=== PATIENT | male | born 1955 | race Caucasian/White ===

== ENCOUNTER 2016-06-22 10:14 | Inpatient (IN) | payer MEDICARE, BC ==
--- NOTE | 2016-06-22 10:25 | ER Document Report ---
ED Medical Screen (RME) - General Stated Complaint: LEFT SIDE FACIAL NUMBNESS Mode of Arrival: Wheelchair Information source: Patient Notes: Patient presents with left upper extremity and left lower extremity numbness that started about one hour prior to arrival. Patient does have a previous history of stroke 2 and is concerned about the same today. Patient without any headache symptoms. hx: CVA, HIV I have greeted and performed a rapid initial assessment of this patient. A comprehensive ED assessment and evaluation of the patient, analysis of test results and completion of the medical decision making process will be conducted by additional ED providers. 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 Denies: Hx Seizures GI Medical History: Denies: Hx Hepatitis, Hx Hiatal Hernia, Hx Ulcer Infectious Medical History: Denies: Hx Hepatitis Past Surgical History: Denies: Hx Open Heart Surgery, Hx Pacemaker Physical Exam - Vital signs Vitals: Temp Pulse Resp BP Pulse Ox 97.9 F 73 16 146/96 H 96 06/22/16 10:19 06/22/16 10:19 06/22/16 10:19 06/22/16 10:19 06/22/16 10:19 - Neurological Cy Coma Scale Eye Opening: Spontaneous Cy Coma Scale Verbal: Oriented Cy Coma Scale Motor: Obeys Commands Cy Coma Scale Total: 15 Notes: Weakened adobe flex developer to left upper extremity Course - Vital Signs Vital signs: Temp Pulse Resp BP Pulse Ox 97.9 F 73 16 146/96 H 96 06/22/16 10:19 06/22/16 10:19 06/22/16 10:19 06/22/16 10:19 06/22/16 10:19
[2016-06-22 11:04] LABS: PROTHROMBIN TIME 12.1 SEC (11.4-15.4)
[2016-06-22 11:05] LABS: PARTIAL THROMBOPLASTIN TIME 27.6 SEC (23.5-35.8)
[2016-06-22 11:06] LABS: ABSOLUTE EOSINOPHILS # (AUTO) 0.1 10^3/uL (0.0-0.6); ABSOLUTE LYMPHOCYTES (AUTO) 3.1 10^3/uL (0.5-4.7); ABSOLUTE MONOCYTES (AUTO) 1.2 10^3/uL (0.1-1.4); ABSOLUTE NEUT (AUTO) 6.3 10^3/uL (1.7-8.2); BASOPHILS % (AUTO) 0.5 % (0-2); HEMATOCRIT 50.1 % (37.9-51.0); HEMOGLOBIN 16.4 g/dL (13.5-17.0); HGB HCT DIFFERENCE -0.9; LYMPHOCYTES % (AUTO) 28.9 % (13-45); MEAN CORPUSCULAR HEMOGLOBIN 31.4 pg (27.0-33.4); MEAN CORPUSCULAR HGB CONC 32.8 g/dL (32.0-36.0); MEAN CORPUSCULAR VOLUME 96 fl (80-97); MONOCYTES % (AUTO) 11.5 % (3-13); RED BLOOD COUNT 5.23 10^6/uL (4.35-5.55); RED CELL DISTRIBUTION WIDTH 13.8 % (11.5-14.0); SEGMENTED NEUTROPHILS % (AUTO) 58.1 % (42-78); WHITE BLOOD COUNT 10.8 10^3/uL (4.0-10.5)
--- NOTE | 2016-06-22 11:14 | ER Document Report ---
ED Neuro Symptoms/Deficit - General Chief Complaint: Weakness Stated Complaint: LEFT SIDE FACIAL NUMBNESS Mode of Arrival: Wheelchair Notes: The patient is a 61-year-old male, past medical history HIV (high CD4, undetectable viral load), 2 prior CVAs 30 years ago, cor pulmonale, presents with sudden onset of mild left arm and leg weakness and numbness started at 9: 15. He has never had this before. He denies headache, blurry vision, nausea, vomiting, chest pain, shortness of breath, back pain, neck pain, neck stiffness , facial/right-sided weakness or numbness. - Related Data Allergies/Adverse Reactions: cephalexin [Cephalexin] Allergy (Unknown, Verified 11/05/12 11:05) fexofenadine HCl [From Lizzie] Allergy (Unknown, Verified 11/05/12 11:05) ketoconazole [From Nizoral] Allergy (Unknown, Verified 11/05/12 11:05) nevirapine [From Viramune] Allergy (Unknown, Verified 11/05/12 11:05) niacin [Niacin] Allergy (Unknown, Verified 11/05/12 11:05) stavudine [From Zerit] Allergy (Unknown, Verified 11/05/12 11:05) aztreonam Allergy (Verified 06/22/16 11:08) VIDEZ Allergy (Unknown, Uncoded 11/05/12 11:05) Past Medical History - General Information source: Patient - Social History Smoking Status: Former Smoker Family History: Reviewed & Not Pertinent - Past Medical History Cardiac Medical History: Denies: Hx Heart Attack - 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 Denies: Hx Seizures GI Medical History: Denies: Hx Hepatitis, Hx Hiatal Hernia, Hx Ulcer Infectious Medical History: Denies: Hx Hepatitis Past Surgical History: Denies: Hx Open Heart Surgery, Hx Pacemaker Review of Systems - Review of Systems Notes: REVIEW OF SYSTEMS: CONSTITUTIONAL: -fevers, -chills EENT: -eye pain, -difficulty swallowing, -nasal congestion CARDIOVASCULAR:-chest pain, -syncope. RESPIRATORY: -cough, -SOB GASTROINTESTINAL: -abdominal pain, - nausea, -vomiting, -diarrhea GENITOURINARY: -dysuria, -hematuria MUSCULOSKELETAL: -back pain, -neck pain SKIN: -rash or skin lesions. HEMATOLOGIC: -easy bruising or bleeding. LYMPHATIC: -swollen, enlarged glands. NEUROLOGICAL: -altered mental status or loss of consciousness, -headache, +left arm/leg weakness and numbness PSYCHIATRIC: -anxiety, -depression. ALL OTHER SYSTEMS REVIEWED AND NEGATIVE. Physical Exam - Vital signs Vitals: Temp Pulse Resp BP Pulse Ox 97.9 F 73 16 146/96 H 96 06/22/16 10:19 06/22/16 10:19 06/22/16 10:19 06/22/16 10:19 06/22/16 10:19 - Notes Notes: PHYSICAL EXAMINATION: GENERAL: Well-appearing, well-nourished and in no acute distress. HEAD: Atraumatic, normocephalic. EYES: Pupils equal round and reactive to light, extraocular movements intact, sclera anicteric, conjunctiva are normal. ENT: nares patent, oropharynx clear without exudates. Moist mucous membranes. NECK: Normal range of motion, supple without lymphadenopathy LUNGS: Breath sounds clear to auscultation bilaterally and equal. No wheezes rales or rhonchi. HEART: Regular rate and rhythm without murmurs ABDOMEN: Soft, nontender, normoactive bowel sounds. No guarding, no rebound. No masses appreciated. EXTREMITIES: Normal range of motion, no pitting or edema. No cyanosis. NEUROLOGICAL: 4/5 strength in left arm and left leg, partial sensory loss in left arm and left leg, no other sensory loss or weakness, Cranial nerves grossly intact. Normal speech, normal gait. PSYCH: Normal mood, normal affect. SKIN: Warm, Dry, normal turgor, no rashes or lesions noted. Course - Re-evaluation Re-evalutation: Stroke alert called immediately on arrival to the emergency room. CT does not show any acute bleeds or acute strokes. Patient's onset of symptoms at 09:15. Normal blood glucose. NIHSS 3. ABCD2 score 6, which places him in the high risk category for future CVAs. He is not on any blood thinners. ASA provided. Spoke to patient about risks and benefits of TPA, including 2 out of 18 patients experience relief of her symptoms and 1 out of 18 patients will have a life- threatening head bleed. Due to his low NIH stroke scale and risks outweighing the benefits, the patient made a shared decision to not accept TPA at this time. EKG shows diffuse T-wave inversions, but no old EKG to compare it to. Troponin negative and never had chest pain. May be related to his cor pulmonale and PFO. Will admit patient as inpatient for further evaluation and treatment of his TIA/CVA. His PMD is Dr. Dyer. Will admit to the hospitalist. 06/22/16 12:02 Labs unremarkable. Spoke to Dr. Camacho and will admit patient to IM as Inpatient. - Vital Signs Vital signs: Temp Pulse Resp BP Pulse Ox 97.9 F 73 16 146/96 H 96 06/22/16 10:19 06/22/16 10:19 06/22/16 10:19 06/22/16 10:19 06/22/16 10:19 - Laboratory Result Diagrams: 06/22/16 10:50 06/22/16 10:50 - Diagnostic Test Radiology reviewed: Image reviewed, Reports reviewed Radiology results interpreted by me: CT Head: Chronic changes, no acute bleeds CXR: NAD - EKG Interpretation by Me EKG shows normal: Sinus rhythm, [place], Intervals, QRS Complexes When compared to previous EKG there are: Previous EKG unavailable Additional EKG results interpreted by me: Inverted T-waves in diffuse leads (no old EKG) Critical Care Note - Critical Care Note Total time excluding time spent on procedures (mins): 35 ED Alteplase Inc/Exc Criteria - Date/Time patient last known well: Date/Time: 06/22/16 09:15 am - Date/Time patient arrived in ED: _: 06/22/16 10:00 am - Inclusion Criteria: 1: Patient presented to ED within 3 hours of acute ischemic stroke symptom onset ? -: Yes 2: Did baseline CT exclude intracranial hemorrhage and/or other risk factors? -: Yes 3: Is the age of the patient 18 years of age or greater? -: Yes : If any of the above questions are answered "NO" then stop, patient is not a candidate for Alteplase, : If all of the above questions are answered "YES" then continue with Exclusion Criteria. - Exclusion Criteria: 1: Is there evidence of intracranial hemorrhage on baseline CT? -: No 2: Is there suspicion of subarachnoid hemorrhage (even if CT negative)? -: No 3: Is there a history of serious head trauma, recent previous stroke or PA within 3 months? -: No 4: Does the patient have a clinical presentation consistent with PA or post-PA pericarditis? -: No 5: Is there history of intracranial hemorrhage? -: No 6: On repeated measurement is Systolic BP greater than 185mmHg or Diastolic BP greater that 110 mmHg and is aggressive treatment needed to reduce blood pressure to these limits (e.g. constant infusion of an anti-hypertensive)? -: No 7: Did the patient awake with stroke symptoms? -: No 8: Has the patient had a lumbar puncture or an arterial puncture at a non- compressile site within 7 days? -: No 9: With in the last 14 days did the patient have surgery or major trauma? -: No 10: Is the patient or less than 2 weeks? -: No 11: Was there any active bleeding or acute trauma? -: No 12: Does the patient have intracranial neoplasm, arteriovenous malformation or aneurysm? -: No 13: Does the patient have abnormal glucose (less than 50 or greater than 400mg/ dl)? Record glucose in Comment. -: No 14: Patient has rapidly improving symptoms at the time Alteplase is to be Administered. -: No 15: Does the patient have any risks for bleeding, including but not limited to: a.: Current use of Coumadin with PT greater than 15 seconds or INR greater than 1.7. b.: Current use of Pradaxa (Dabigatran). c.: Heparin administereed within the past 48 hours and PTT elevated. d.: Platelet count less than 100,000/mm. e.: Major surgery or serious trauma within 14 days. f.: Gastrointestinal or gynecological urinary bleeding within 14 days. g.: Myocardial Infarction (PA) within 3 months. -: No : If the answer to any of the above questions is "YES" then stop, the patient is not a candidate for Alteplase. : If the answer to all of the above questions is "NO" then the patient may be eligible for the Administration of Alteplase. : If the patient is noted to have seizure activity at onset of Stroke symptoms; Consult Neurologist for further evaluation. - The patient is: -: Included and is eligible to receive Alteplase. *Initiate bed placement at higher level of care* --: Yes Reviewd risks & benefits of thrombolytic therapy: I have reviewed the risks and benefits of thrombolytic therapy with the patient and/or his/her family. Yes - Patient elects to not receive tPa due to risks outweighing benefits. -: Excluded and not eligible to receive Alteplase for the above exclusions. -: Excluded and not eligible to receive Alteplase for other reasons (specify in comments): - Diagnosis of TIA: -: Patient presented with transient symptoms that are now resolved and no other neurologic findings are currently present. List symptoms in comments. -: No -: Patient is NOT a candidate for tPA. -: ____(put name in comment) has been consulted for admission and continued evaluation of risk factor assessment. ED NIH Stroke Scale - NIH Stroke Scale When completed:: Before Alteplase *: 1. NIH scale should be completed with appropriate accompanying assessment tools. *: 2. The NIH should reflect what the patient is capable of doing and should not be coached by the clinician. 1a. Level of Consciousness: 0=Alert;keenly responsive -: 1=Drowsy -: 2=Obtunded -: 3=Coma/unresponsive or reflex to noxious stimuli. 1a. Responses: 0 1b. Orientation Questions: a. What month is it? -: b. How old are you? -: 0=Answers both questions correctly. -: 1=Answers one question correctly or patient is intubated or has orotracheal trauma. -: 2=Answers neither question correctly. 1b. Responses: 0 1c. Response to commands: a. Open and close eyes? -: b. Basketball Coach and release hand? -: Credit is given despite weakness. Demonstration of task is permitted. Substitute command if hands cannot be used. -: 0=Performs both tasks correctly -: 1=Performs one task correctly -: 2=Performs neither task correctly 1c. Responses: 0 2. Gaze: Establish eye contact and instruct patient to "Follow my finger" -: 0=Normal -: 1=Partial gaze palsy. Gaze is abnormal in one or both eyes, but where forced deviation or total gaze paresis is not present. -: 2=Forced deviation or total gaze paresis. 2. Responses: 0 3. Visual [place]: Sees fingers in all four quadrants. -: 0=No visual loss. -: 1=Partial hemianopsia. -: 2=Complete hemianopsia. -: 3=Bilateral hemianopsia (including Cortical blindness) 3. Responses: 0 4. Facial Movement: Instruct patient to: -: a. Show me your teeth -: b. Raise your eyebrows -: c. Close your eyes -: d. Smile -: 0=Normal symmetrical movement -: 1=Minor paralysis (flattened nasolabial fold, asymmetry on smiling). -: 2=Partial paralysis (total or near total paralysis of lower face). -: 3=Complete paralysis of upper and lower face 4. Responses: 0 5. Motor functions (left arm): Alternate sides and extend each arm with palms down (90 degrees if sitting or 45 degrees for supine). -: 0=No drift;limb holds for full 10 seconds. -: 1=Drift; limb holds but drifts down before full 10 seconds, but does not hit bed. -: 2=Some effort against gravity; limb cannot get to or maintain position. -: 3=No effort against gravity; limb falls. -: 4=No movement. -: UN=Amputation, joint fusion, explain in comments. 5. Responses (left arm): 1 5. Motor Functions (right arm): Alternate sides and extend each arm with palms down (90 degrees if sitting or 45 degrees for supine). -: 0=No drift;limb holds for full 10 seconds. -: 1=Drift; limb holds but drifts down before full 10 seconds, but does not hit bed. -: 2=Some effort against gravity; limb cannot get to or maintain position. -: 3=No effort against gravity; limb falls. -: 4=No movement. -: UN=Amputation, joint fusion, explain in comments. 5. Responses (right arm): 0 6. Motor Functions (left leg): With patient lying supine, alternate sides and extend each leg (30 degrees always while supine). -: 0=No drift, leg holds position for full 5 seconds -: 1=Drift; leg falls before full 5 seconds but does not hit bed. -: 2=Some effort against gravity, leg falls to bed but some effort against gravity. -: 3=No effort against gravity, leg falls to bed immediately. -: 4=No movement. -: UN=Amputation, joint fusion; explain in comments. 6. Responses (left leg): 1 6. Motor Functions (right leg): With patient lying supine, alternate sides and extend each leg (30 degrees always while supine). -: 0=No drift, leg holds position for full 5 seconds -: 1=Drift; leg falls before full 5 seconds but does not hit bed. -: 2=Some effort against gravity, leg falls to bed but some effort against gravity. -: 3=No effort against gravity, leg falls to bed immediately. -: 4=No movement. -: UN=Amputation, joint fusion; explain in comments. 6. Responses (right leg): 0 7. Limb Ataxia: With eyes open instruct patient to: -: a. "Touch your finger to your nose". -: b. "Touch your heel to your amato" -: 0=Absent -: 1=Present in one limb. -: 2=Present in two limbs. -: UN=Amputation or joint fusion; explain in comments. 7. Responses: 0 8. Sensory: Test sensation using pinprick or noxious stimuli. Test as many body parts as possible. -: 0=Normal;no sensory loss -: 1=Mile to moderate sensory loss (patient feels pin prick but is less sharp on affected side). -: 2=Severe or total sensory loss. 8. Responses: 1 9. Best Language: Instruct patient to: -: a. "Describe what you see in this picture." -: b. "Name the items in this picture." -: c. "Read these sentences." -: 0=No aphasia, normal -: 1=Mild to moderate aphasia. -: 2=Severe aphasia -: 3=Mute, global aphasia, no usable speech or auditory comprehension. 9. Responses: 0 10. Articulation, Dysarthia: Instruct patient to: -: "Read these words" or "Repeat these words" -: 0=Normal -: 1=Mild to moderate; patient may slur some words but can be understood without difficulty. -: 2=Severe; patients speech so slurred as to be unintelligible in the absence of dysphasia. -: UN=Intubated or other physical barrier, explain in comments. 10. Responses: 0 11. Extinction or inattention: 0=No abnormality -: 1= Visual, tactile, auditory, spatial, or personal inattention or extinction to bilateral simulation in one or the sensory modalities. -: 2=Profound diana-inattention or diana-inattention to more than one modality; does not recognize own hand. 11. Responses: 0 Total Score: 3 Discharge - Discharge Clinical Impression: TIA (transient ischemic attack) Qualifiers: Transient cerebral ischemia type: unspecified Qualified Code(s): G45.9 - Transient cerebral ischemic attack, unspecified Condition: Stable Disposition: ADMITTED INPATIENT [facility] Admitted: [facility]
[2016-06-22 11:24] LABS: ALANINE AMINOTRANSFERASE 29 U/L (21-72); ALBUMIN 4.7 g/dL (3.5-5.0); ALKALINE PHOSPHATASE 62 U/L (38-126); ANION GAP 13 (5-19); ASPARTATE AMINO TRANSFERASE 34 U/L (17-59); BILIRUBIN,TOTAL 0.6 mg/dL (0.2-1.3); BLOOD UREA NITROGEN 8 mg/dL (7-20); CALCIUM 9.5 mg/dL (8.4-10.2); CARBON DIOXIDE 26 mmol/L (22-30); CHLORIDE 98 mmol/L (98-107); CREATINE KINASE 50 U/L (55-170); CREATININE RESULT 0.76 mg/dL (0.52-1.25); GLUCOSE 98 mg/dL (75-110); POTASSIUM 4.6 mmol/L (3.6-5.0); SODIUM 137.3 mmol/L (137-145); TOTAL PROTEIN 7.7 g/dL (6.3-8.2)
[2016-06-22 11:35] LABS: CREATINE KINASE MB 1.12 ng/mL (<4.55); TROPONIN I 0.015 ng/mL
[2016-06-22] MEDS ORDERED: ACETAMINOPHEN 325 MG TABLET PO PRN (13:27)
[2016-06-22] MEDS ORDERED: CLONIDINE HCL 0.1 MG TABLET PO PRN (13:27)
[2016-06-22] MEDS ORDERED: MAGNESIUM HYDROXIDE SUSP 30 ML UDCUP PO PRN (13:32)
[2016-06-22] MEDS ORDERED: ONDANSETRON HCL INJ/PF 4 MG/2 ML SDV IV PRN (13:32)
--- NOTE | 2016-06-22 13:55 | PDOC H&P ---
History of Present Illness Admission Date/PCP: 06/22/16 12:14 WILMAR BURDEN MD Patient complains of: Left-sided weakness History of Present Illness: ANN RODRIGUEZ is a 61 year old male presents from home to the ED with sudden onset of left-sided weakness. States he was sitting on the toilet when suddenly he felt an unusual sensation in his left arm and left leg, left arm began to draw up and his hand began to curling all uncontrollably as if being manipulated by an outside force with loss of feeling in both the arm and leg. His symptoms persisted until his arrival in the emergency department and while his strength has returned the paresthesias have not resolved. There was no aura and no precipitating factors. He denies headache, vision changes, speech changes, difficulty swallowing, drooling, difficulty getting his words, chest pain, palpitations. 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 Therefore he has not been on anticoagulation or antiplatelet therapy since. He follows with Dr. Dyer as his primary care provider. He follows with infectious disease doctor in [place] for management of his HIV which he states a elevated CD4 count and an undetectable viral load just last month. Evaluation in the emergency department CT scan shows old lacunar infarcts and microvascular disease, he has persistent paresthesias on the left but really no other abnormality was identified and we were asked to admit the patient for stroke evaluation and management. 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, Hypertension Pulmonary Medical History: Reports: Pneumonia Denies: Asthma Neurological Medical History: Reports: Ischemic CVA Denies: Migraine, Seizures Endocrine Medical History: Denies: Diabetes Mellitus Type 1, Diabetes Mellitus Type 2 Renal/ Medical History: Denies: Chronic Kidney Disease GI Medical History: Denies: Hepatitis, Hiatal Hernia Hematology: Denies: Anemia, Sickle Cell Disease Infectious Medical History: Reports: HIV Past Surgical History Past Surgical History: Reports: Tonsillectomy Denies: Pacemaker Social History Smoking Status: Former Smoker Frequency of Alcohol Use: None Hx Recreational Drug Use: No Hx Prescription Drug Abuse: No Family History Family History: Reviewed & Not Pertinent Parental Family History Reviewed: Yes Children Family History Reviewed: Yes Sibling(s) Family History Reviewed.: Yes Medication/Allergy Home Medications: Abacavir Sulfate [Ziagen 300 mg Tablet] 300 mg PO BID 11/05/12 Ascorbic Acid [Vitamin C 500 Mg Tablet] 500 mg PO DAILY 11/05/12 Calcium Carbonate [Tums Chewable 500 Mg Tab.Chew] 1,000 mg PO QID 11/05/12 Cholecalciferol (Vitamin D3) [Vitamin D3 2000 unit Capsule] 2,000 unit PO DAILY 11/05/12 Clobetasol Propionate PRN 11/05/12 Diphenhydramine HCl [Benadryl] 25 mg PO TID 11/05/12 Fluconazole [Diflucan] 50 mg PO DAILY 11/05/12 Head And Shoulders 11/05/12 Lamivudine [Epivir 150 Mg Tablet] 150 mg PO BID 11/05/12 Loperamide HCl [Imodium 2 Mg Capsule] 2 mg PO DAILY 11/05/12 Multivitamin [Multi Vitamin Daily] 1 each PO DAILY 11/05/12 Nelfinavir Mesylate [Viracept] 625 mg PO BID 11/05/12 [place]-3 Fatty Acids/Fish Oil [Fish Oil 1,000 Mg Capsule] 1 each PO TID 11/05/12 Psyllium Husk [Psyllium Fiber] 0.52 gm PO DAILY 11/05/12 Salicylic Acid [T-Gel] 130 ml TP 11/05/12 Selenium Sulfide [Selsun Blue] 207 ml TP 11/05/12 Simethicone 80 mg PO TID 11/05/12 Allergies/Adverse Reactions: cephalexin [Cephalexin] Allergy (Unknown, Verified 11/05/12 11:05) fexofenadine HCl [From Lizzie] Allergy (Unknown, Verified 11/05/12 11:05) ketoconazole [From Nizoral] Allergy (Unknown, Verified 11/05/12 11:05) nevirapine [From Viramune] Allergy (Unknown, Verified 11/05/12 11:05) niacin [Niacin] Allergy (Unknown, Verified 11/05/12 11:05) stavudine [From Zerit] Allergy (Unknown, Verified 11/05/12 11:05) aztreonam Allergy (Verified 06/22/16 11:08) VIDEZ Allergy (Unknown, Uncoded 11/05/12 11:05) Review of Systems Constitutional: ABSENT: chills, fever(s), headache(s), weight gain, weight loss Eyes: ABSENT: visual disturbances Ears: ABSENT: hearing changes Cardiovascular: ABSENT: chest pain, dyspnea on exertion, edema, orthropnea, palpitations Respiratory: ABSENT: cough, hemoptysis Gastrointestinal: ABSENT: abdominal pain, constipation, diarrhea, hematemesis, hematochezia, nausea, vomiting Genitourinary: ABSENT: dysuria, hematuria Musculoskeletal: PRESENT: muscle weakness. ABSENT: joint swelling Integumentary: ABSENT: rash, wounds Neurological: PRESENT: abnormal movements, focal weakness, numbness, paresthesias, tingling. ABSENT: abnormal gait, abnormal speech, confusion, dizziness, syncope Psychiatric: ABSENT: anxiety, depression, homidical ideation, suicidal ideation Endocrine: ABSENT: cold intolerance, heat intolerance, polydipsia, polyuria Hematologic/Lymphatic: ABSENT: easy bleeding, easy bruising Physical Exam Vital Signs: Temp Pulse Resp BP Pulse Ox 97.9 F 75 11 L 152/98 H 94 06/22/16 10:19 06/22/16 10:30 06/22/16 13:01 06/22/16 13:01 06/22/16 13:01 PHYSICAL EXAM GENERAL: NAD; well developed, thin, no obese; alert and oriented to person, place, time, situation HEENT: normocephalic, atraumatic; EOMI, PERRLA, no conjunctival injection, no scleral icterus; oral mucosa moist, neck supple, no LAD, normal ROM; thyroid not enlarged RESPIRATORY: no accessory muscle use, no increased WOB, good air entry bilaterally; no wheezes, rales, rhonchi; no inspiratory crackles CARDIO: no JVD; RRR; no systolic murmur; no tachycardia VASCULAR: no carotid bruit; no abdominal bruit; no pallor; 2+ radial, DP pulse ; normal capillary refill GI: soft; nondistended; normal bowel sounds; no hepato spleno megaly; no rebound, rigidity, guarding; nontender NEURO: Decreased to 1+ patella reflexes; abnormal sensation left lower extremity about the lateral aspect pretibial area and the foot; normal motor function; no dysarthria; no nystagmus; tongue protrudes to the left; normal finger to nose; able to cross midline with finger to ear MSK: 5/5 strength; normal ROM hips; no tenderness EXTREMITIES: no calf tender; no palpable cords in calf; no clubbing, cyanosis , pedal edema PSYCH: normal affect, normal mood SKIN: warm; moist; no petechiae; no telengectasias; no jaundice; no rash Results Laboratory Results: Labs reviewed, electrolytes normal, LFTs normal, glucose 103, CBC shows a mild leukocytosis at 10.8 but is otherwise unremarkable including indices, INR and PTT are normal. Impressions: Chest X-Ray 06/22/16 10:23 IMPRESSION: No significant interval change. No acute findings. Other findings as noted above Head CT 06/22/16 10:23 IMPRESSION: MILD CHRONIC CHANGES OF ATROPHY AND MICROVASCULAR ISCHEMIA. Tiny lacunar infarcts in the basal ganglia bilaterally. NO ACUTE PROCESS. Status: Image reviewed by me - Agree with radiology Assessment & Plan - Diagnosis (1) CVA (cerebral vascular accident) Qualifiers: CVA mechanism: unspecified Qualified Code(s): I63.9 - Cerebral infarction, unspecified Is this a current diagnosis for this admission?: YesPlan: Admit the patient to IMCU for close hemodynamic monitoring; check noncontrast MRI of the brain, bilateral carotid Dopplers, and echocardiogram. Screen for metabolic disturbances including B12, magnesium, phosphorus, lipids and RPR. Start empiric aspirin. Allow permissive hypertension maintaining pressures below 190/100. Have PT, OT, speech therapy evaluate. (2) HIV (human immunodeficiency virus infection) Is this a current diagnosis for this admission?: YesPlan: His family is bringing in his medications for verification, we will resume his usual regimen. (3) Hypertension Qualifiers: Hypertension type: unspecified secondary hypertension Qualified Code (s): I15.9 - Secondary hypertension, unspecified; I15 - Secondary hypertension Is this a current diagnosis for this admission?: YesPlan: Unclear source, perhaps stress reaction to the above. Continue to trend and if remains elevated at 48 hours post event we'll begin treatment, preferably with KATIANA inhibitor initially. (4) Reactive hypoglycemia Is this a current diagnosis for this admission?: YesPlan: Glucose was normal on presentation. Patient will need frequent snacks of proteins or complex carbohydrates through the course of the day and should avoid high sugar loads. - Time Time Spent: 50 to 70 Minutes Medications reviewed and adjusted accordingly: Yes Anticipated discharge: Home Within: within 48 hours - Inpatient Certification Medical Necessity: Significant Comorbidiites Make Outpatient Treatment Too Risky , Need For Continuous Telemetry Monitoring, Risk of Complication if Not Cared For in Hospital
[2016-06-22 14:00] LABS: PHOSPHORUS 3.2 mg/dL (2.5-4.5)
[2016-06-22] MEDS ORDERED: ASPIRIN 81 MG TABLET, ENT COATED PO ONE (14:00)
[2016-06-22] MEDS ORDERED: ENOXAPARIN SODIUM INJ 40 MG/0.4 ML DISP.SYRIN SUBCUT ONE (14:30)
--- NOTE | 2016-06-22 16:55 | EKG REPORT ---
SEVERITY:- ABNORMAL ECG - SINUS RHYTHM ABNORMAL T, CONSIDER ISCHEMIA, DIFFUSE LEADS : Confirmed by: Isha Agarwal MD 22-Jun-2016 16:54:44
--- NOTE | 2016-06-22 18:32 | XCELERA REPORT ---
[address] [address] Transthoracic Echocardiogram Report Name: ANN RODRIGUEZ V Age: 61 yrs Gender: Male : 1955 Patient Status: Inpatient Patient Location: \S\ED02\S\A Study Date: 06/22/2016 02:50 PM Height: 69 in Weight: 158 lb BSA: 1.9 m2 Procedure: A complete two-dimensional transthoracic echocardiogram was performed (2D, M-mode, spectral and color flow Doppler). The study was technically adequate with some images being suboptimal in quality. Reason For Study: CVA, hx of tricuspid embolic disease Ordering Physician: LUIS DANIEL CHUNG Performed By: Cha Syed Interpretation Summary The left ventricular ejection fraction is normal. The right ventricular systolic function is moderately reduced. There is moderate to severe right ventricular hypertrophy. The right ventricle is moderately dilated. There is mild concentric left ventricular hypertrophy. The left ventricle is grossly normal size. Doppler measurements suggest pseudonormalized left ventricular relaxation, which is associated with grade II/IV or mild to moderate diastolic dysfunction Wall motion cannot be accurately commented on, but no definite regional wall motion abnormalities noted. The right atrium is moderately dilated. The left atrial size is normal. There is no mitral valve stenosis. There is a trace amount of mitral regurgitation There is no aortic valve stenosis No aortic regurgitation is present. There is a mild amount of tricuspid regurgitation There is servere pulmonary hypertension by echo Right ventricular systolic pressure is estimated to be elevated at >60mmHg. The aortic root is not well visualized. The inferior vena cava appeared normal and decreased > 50% with respiration (RAP 5-10 mmHg) There is no pericardial effusion. MMode/2D Measurements \T\ Calculations RVDd: 4.2 cm LVIDd: 4.6 cm FS: 41.0 % Ao root diam: 3.2 cm IVSd: 0.98 cm LVIDs: 2.7 cm EDV(Teich): 96.5 ml LVPWd: 0.95 cm ESV(Teich): 27.1 ml Ao root area: 8.0 cm2 EF(Teich): 71.9 % LA dimension: 3.2 cm Doppler Measurements \T\ Calculations MV E max alan: MV P1/2t max alan: Ao V2 max: LV V1 max P.4 cm/sec 53.2 cm/sec 118.9 cm/sec 2.4 mmHg MV A max alan: MV P1/2t: 66.3 msec Ao max PG: LV V1 max: 78.7 cm/sec 5.7 mmHg 76.9 cm/sec MV E/A: 0.67 MVA(P1/2t): 3.3 cm2 MV dec slope: 234.9 cm/sec2 MV dec time: 0.23 sec PA V2 max: PI end-d aaln: TR max alan: 64.2 cm/sec 214.5 cm/sec 458.8 cm/sec PA max PG: TR max P.6 mmHg 84.2 mmHg Left Ventricle The left ventricle is grossly normal size. There is mild concentric left ventricular hypertrophy. The left ventricular ejection fraction is normal. Doppler measurements suggest pseudonormalized left ventricular relaxation, which is associated with grade II/IV or mild to moderate diastolic dysfunction. Wall motion cannot be accurately commented on, but no definite regional wall motion abnormalities noted. Right Ventricle The right ventricle is moderately dilated. There is moderate to severe right ventricular hypertrophy. The right ventricular systolic function is moderately reduced. Atria The right atrium is moderately dilated. The left atrial size is normal. Interarterial septum not well visualized and not well dopplered. Cannot comment on ASD/PFO presence. Mitral Valve The mitral valve is grossly normal. There is no mitral valve stenosis. There is a trace amount of mitral regurgitation. Aortic Valve The aortic valve is grossly normal. There is no aortic valve stenosis. No aortic regurgitation is present. Tricuspid Valve The tricuspid valve is not well visualized, but is grossly normal. There is no tricuspid stenosis. There is a mild amount of tricuspid regurgitation. There is servere pulmonary hypertension by echo. Right ventricular systolic pressure is estimated to be elevated at >60mmHg. Pulmonic Valve The pulmonic valve is not well visualized. Great Vessels The aortic root is not well visualized. The inferior vena cava appeared normal and decreased > 50% with respiration (RAP 5-10 mmHg). Effusions There is no pericardial effusion. : LUIS DANIEL CHUNG > Rebecca Enciso
[2016-06-22] MEDS: FAMOTIDINE 20 MG TABLET PO SCH (22:30)
[2016-06-23] MEDS ORDERED: GUAIFENESIN SYRP 200 MG/10 ML UDC PO PRN (04:38)
[2016-06-23] MEDS ORDERED: ENOXAPARIN SODIUM INJ 40 MG/0.4 ML DISP.SYRIN SUBCUT SCH (08:00)
[2016-06-23] MEDS ORDERED: ASPIRIN 81 MG TABLET, ENT COATED PO SCH (10:00)
[2016-06-23] MEDS: FAMOTIDINE 20 MG TABLET PO SCH (10:53)
[2016-06-23 11:12] VITALS: BP 131/88
--- NOTE | 2016-06-23 13:19 | PDOC DISCHARGE SUMMARY ---
General - Admit/Disc Date/PCP Admission Date/Primary Care Provider: 06/22/16 13:27 WILMAR BURDEN MD Discharge Date: 06/23/16 - Discharge Diagnosis (1) CVA (cerebral vascular accident) Is this a current diagnosis for this admission?: YesSummary: Small right parietal stroke noted on MRI accounting for the patient's present symptoms. All of his symptoms have resolved aside from some mild paresthesias in the left arm, he is showing no motor deficits and therefore has no need for ongoing or outpatient physical, occupational or speech therapy. The patient is a self-described minimalist and is largely refusing routine standard of care, he has however willing to accept low-dose antiplatelet therapy with aspirin 81 mg daily. He states he will discuss further treatment with his primary care team coordinated with his infectious disease doctor. At this point the patient is stable for discharge home (2) HIV (human immunodeficiency virus infection) Is this a current diagnosis for this admission?: YesSummary: Follow up with his infectious disease doctor for ongoing treatment. (3) Hypertension Is this a current diagnosis for this admission?: YesSummary: Blood pressure remains above goal of 125/85, however he is resistant to the addition of antihypertensives at this time. (4) Reactive hypoglycemia Is this a current diagnosis for this admission?: YesSummary: He was able to manage this throughout his hospitalization without any episodes. - Additional Information Resuscitation Status: Full Code Discharge Diet: Other (Comments) - continue current Discharge Activity: Activity As Tolerated Home Medications: Abacavir Sulfate [Abacavir 300 mg Tablet] 300 mg PO Q12 06/22/16 Lamivudine [Epivir 150 mg Tablet] 150 mg PO BID 06/22/16 Nelfinavir Mesylate [Viracept] 2 tab PO BID 06/22/16 Acetaminophen [Tylenol 325 mg Tablet] 650 mg PO Q4HP PRN tablet 06/23/16 Aspirin [Ecotrin 81 mg EC Tablet] 81 mg PO DAILY #30 tabec 06/23/16 Diphenhydramine HCl 25 mg PO TID 06/23/16 Guaifenesin [Mucinex] 600 mg PO BID PRN 06/23/16 Loperamide HCl [Imodium A-D] 2 mg PO BID 06/23/16 Multivitamin [Multivitamins] 1 each PO DAILY 06/23/16 [place]-3/Dha/Epa/Fish Oil [Fish Oil 1,400 mg Softgel] 1,400 mg PO BID 06/23/16 Ubidecarenone [Coq-10] 100 mg PO BID 06/23/16 History of Present Illness Patient complains of: Left-sided weakness and paresthesias History of Present Illness: ANN RODRIGUEZ is a 61 year old male presents from home to the ED with sudden onset of left-sided weakness. States he was sitting on the toilet when suddenly he felt an unusual sensation in his left arm and left leg, left arm began to draw up and his hand began to curling all uncontrollably as if being manipulated by an outside force with loss of feeling in both the arm and leg. His symptoms persisted until his arrival in the emergency department and while his strength has returned the paresthesias have not resolved. There was no aura and no precipitating factors. He denies headache, vision changes, speech changes, difficulty swallowing, drooling, difficulty getting his words, chest pain, palpitations. 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 Therefore he has not been on anticoagulation or antiplatelet therapy since. He follows with Dr. Dyer as his primary care provider. He follows with infectious disease doctor in [place] for management of his HIV which he states a elevated CD4 count and an undetectable viral load just last month. Evaluation in the emergency department CT scan shows old lacunar infarcts and microvascular disease, he has persistent paresthesias on the left but really no other abnormality was identified and we were asked to admit the patient for stroke evaluation and management. Hospital Course Hospital Course: he was admitted to the [facility] and monitored carefully without any evidence of cardiac dysrhythmias, his blood pressures remained reasonably well controlled given the circumstances and gradually over the next 24 hours his symptoms almost completely resolved, leaving him only a mild paresthesia of the left forearm. He did not demonstrate any motor deficits within hours of his admission. His neurologic exam through the night was unremarkable. Evaluation including echocardiogram (please see cardiology's notes for full details) that did show right-sided disease including right ventricular dilatation and a weakness and right atrial enlargement with mild to moderate tricuspid regurgitation and moderate pulmonary hypertension; Otherwise no source of embolic disease was identified. MRI of the brain without contrast showed a small right parietal stroke in an area that would account for his symptoms on presentation. Carotid Dopplers did not show any evidence of plaquing or stenosis and he has antegrade flow through the vertebral arteries. I did not repeat his lipid panel as his primary care doctor had just done so last week and was reportedly normal. His B12 level is normal, hemoglobin A1c is normal at 5.4, magnesium and phosphorus were both normal, 3 sets of cardiac enzymes were negative for acute ischemia and a TSH level was normal at 1.8, the remainder of his electrolytes were likewise unremarkable. Head CT at presentation showed microvascular changes but nothing acute and a chest x-ray showed no acute cardiopulmonary disease including no widening of the mediastinum. With near complete resolution of his symptoms and no ongoing motor deficits he really isn't a candidate for physical, occupational or speech therapy. I had a long discussion with him at the bedside spending approximately 40 minutes reviewing his case and treatment options and the patient is willing to accept low-dose antiplatelet therapy but does not wish to start statin or antihypertensive therapy at this time. He wishes to discuss further with his primary care team enlisting the help with his infectious disease physician to coordinate with his chronic antiretroviral therapy. At this point the patient is stable for discharge home, he expresses no concerns to me about going home today and seems anxious to do so. He asked several excellent questions I attempted to answer to the best of my ability, he seems satisfied with the care he received here. Physical Exam Vital Signs: Temp Pulse Resp BP Pulse Ox 98.3 F 75 16 131/88 H 97 06/23/16 11:04 06/23/16 11:04 06/23/16 11:04 06/23/16 11:04 06/23/16 11:04 Intake & Output 06/22/16 06/23/16 06/24/16 06:59 06:59 06:59 Intake Total 1100 Output Total 700 Balance 400 Weight 70.5 kg PHYSICAL EXAM GENERAL: NAD; well developed, thin, no obese; alert and oriented to person, place, time, situation HEENT: normocephalic, atraumatic; EOMI, PERRLA, no conjunctival injection, no scleral icterus; oral mucosa moist, neck supple, no LAD, normal ROM; thyroid not enlarged RESPIRATORY: no accessory muscle use, no increased WOB, good air entry bilaterally; no wheezes, rales, rhonchi; no inspiratory crackles CARDIO: no JVD; RRR; no systolic murmur; no tachycardia VASCULAR: no carotid bruit; no abdominal bruit; no pallor; 2+ radial, DP pulse ; normal capillary refill GI: soft; nondistended; normal bowel sounds; no hepato spleno megaly; no rebound, rigidity, guarding; nontender NEURO: Nonfocal exam confrontation today, I cannot reproduce or localize the area of paresthesia on his left forearm. MSK: 5/5 strength; normal ROM hips; no tenderness EXTREMITIES: no calf tender; no palpable cords in calf; no clubbing, cyanosis , pedal edema PSYCH: normal affect, normal mood SKIN: warm; moist; no petechiae; no telengectasias; no jaundice; no rash Results Laboratory Results: 06/22/16 06/23/16 17:15 05:45 Magnesium 2.2 TSH 1.80 06/22/16 06/22/16 06/23/16 17:15 23:32 05:45 Troponin I < 0.012 0.013 < 0.012 Impressions: Head MRI 06/22/16 00:00 IMPRESSION: ATROPHY AND CHRONIC MICRO-VASCULAR ISCHEMIC CHANGES. Small area of abnormal signal intensity in the right parietal region on the diffusion- weighted sequences consistent with an area of recent infarction. Old bilateral lacunar infarcts. Old left cerebellar hemispheric infarct. Other findings as noted above Chest X-Ray 06/22/16 10:23 IMPRESSION: No significant interval change. No acute findings. Other findings as noted above Head CT 06/22/16 10:23 IMPRESSION: MILD CHRONIC CHANGES OF ATROPHY AND MICROVASCULAR ISCHEMIA. Tiny lacunar infarcts in the basal ganglia bilaterally. NO ACUTE PROCESS. Carotid Doppler Study 06/22/16 13:30 IMPRESSION: NO HEMODYNAMICALLY SIGNIFICANT STENOSIS. Qualifiers PATEINT BEING DISCHARGED WITH ANY OF THE FOLLOWING DIAGNOSIS?: Stroke VTE patient discharged on overlapping Therapy?: Yes Stroke Pt being discharged on Anti-thrombolytic therapy?: Yes Stroke Pt being discharged on Anti-coagulation therapy?: No Reason(s) for not prescribing Anti-coagulation therapy:: Not indicated Stroke Pt being discharged on Statins?: No Reason(s) for not prescribing Statins therapy:: Drug declined by patient Plan Discharge Plan: Discharge home and back in the care of his primary care team with follow-up in the next 1-2 weeks. He was instructed on signs and symptoms of recurrent stroke and educated on the 3 hour window from onset of symptoms to presentation in the emergency department for thrombolytic therapy. He states clear understanding and willingness to comply with medical direction. Time Spent: Greater than 30 Minutes
== END 2016-06-23 12:40 | disposition home or self-care (01) | DRG 65 ==
LOC: ER 10:14 → UNDOADMIN 12:14 → EH 12:14 → 3W 21:53
PROVIDERS: ADMIT Internal Medicine; ATTEND Internal Medicine
DX: I63.9 Cerebral infarction, unspecified (principal); G81.94 Hemiplegia, unspecified affecting left nondominant side; I15.9 Secondary hypertension, unspecified; E16.1 Other hypoglycemia; I27.81 Cor pulmonale (chronic); I07.9 Rheumatic tricuspid valve disease, unspecified; Z21 Asymptomatic human immunodeficiency virus [HIV] infection status; Z87.891 Personal history of nicotine dependence; Z79.899 Other long term (current) drug therapy; Z88.1 Allergy status to other antibiotic agents; Z88.8 Allergy status to other drugs, medicaments and biological substances; Z53.29 Procedure and treatment not carried out because of patient's decision for other reasons
CPT/HCPCS: 36415; 70450; 70551; 71010; 80053; 82550; 82553; 82607; 82962; 83036; 83735; 84100; 84443; 84484; 85025; 85610; 85730; 86592; 93005; 93010; 93306; 93880; 99291; G8978-GP; G8979-GP; G8980-GP; G8987-GO; G8988-GO; G8989-GO; J1650; J3490

== ENCOUNTER 2016-07-08 15:35 | Emergency (ER) | payer MEDICARE, BC ==
[2016-07-08] MEDS ORDERED: ASPIRIN 81 MG TABLET, CHEWABLE PO ONE (15:40)
--- NOTE | 2016-07-08 15:42 | ER Document Report ---
ED Medical Screen (RME) - General Stated Complaint: CHEST PRESSURE Mode of Arrival: Ambulatory Information source: Patient Notes: pt pesents to the ED with c/o chest pressure that started yesterday. Recently discharged for a stroke. Pt has hx of pulmonary hypertension and + HIV. Reports CD4 count is good. Reports midsternal chest pressure with some SOB. I have greeted and performed a rapid initial assessment of this patient. A comprehensive ED assessment and evaluation of the patient, analysis of test results and completion of the medical decision making process will be conducted by additional ED providers. TRAVEL OUTSIDE OF THE [place] IN LAST 30 DAYS: No - Related Data Allergies/Adverse Reactions: cephalexin [Cephalexin] Allergy (Unknown, Verified 11/05/12 11:05) fexofenadine HCl [From Lizzie] Allergy (Unknown, Verified 11/05/12 11:05) ketoconazole [From Nizoral] Allergy (Unknown, Verified 11/05/12 11:05) nevirapine [From Viramune] Allergy (Unknown, Verified 11/05/12 11:05) niacin [Niacin] Allergy (Unknown, Verified 11/05/12 11:05) stavudine [From Zerit] Allergy (Unknown, Verified 11/05/12 11:05) aztreonam Allergy (Verified 06/22/16 11:08) VIDEZ Allergy (Unknown, Uncoded 11/05/12 11:05) Past Medical History - Past Medical History Cardiac Medical History: Reports: 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 Denies: Hx Migraine, Hx Seizures Endocrine Medical History: Denies: Hx Diabetes Mellitus Type 1, Hx Diabetes Mellitus Type 2 GI Medical History: Denies: Hx Hepatitis, Hx Hiatal Hernia, Hx Ulcer Infectious Medical History: Reports: Hx HIV. Denies: Hx Hepatitis Past Surgical History: Reports: Hx Abdominal Surgery - spleenectomy, Hx Oral Surgery, Hx Rectal Surgery - hemorrhoids, anal fistula, Hx Tonsillectomy, Hx Urinary Tract Surgery - turp. Denies: Hx Open Heart Surgery, Hx Pacemaker - Immunizations Hx Diphtheria, Pertussis, Tetanus Vaccination: Yes
[2016-07-08 16:42] LABS: ABSOLUTE BASOPHILS # (AUTO) 0.1 10^3/uL (0.0-0.2); ABSOLUTE EOSINOPHILS # (AUTO) 0.1 10^3/uL (0.0-0.6); ABSOLUTE LYMPHOCYTES (AUTO) 2.2 10^3/uL (0.5-4.7); ABSOLUTE MONOCYTES (AUTO) 0.8 10^3/uL (0.1-1.4); ABSOLUTE NEUT (AUTO) 3.1 10^3/uL (1.7-8.2); BASOPHILS % (AUTO) 1.3 % (0-2); EOSINOPHILS % (AUTO) 1.8 % (0-6); HEMATOCRIT 48.6 % (37.9-51.0); HEMOGLOBIN 16.1 g/dL (13.5-17.0); HGB HCT DIFFERENCE -0.3; LYMPHOCYTES % (AUTO) 34.7 % (13-45); MEAN CORPUSCULAR HEMOGLOBIN 31.4 pg (27.0-33.4); MEAN CORPUSCULAR VOLUME 95 fl (80-97); MONOCYTES % (AUTO) 12.7 % (3-13); RED BLOOD COUNT 5.11 10^6/uL (4.35-5.55); RED CELL DISTRIBUTION WIDTH 13.5 % (11.5-14.0); SEGMENTED NEUTROPHILS % (AUTO) 49.5 % (42-78); WHITE BLOOD COUNT 6.2 10^3/uL (4.0-10.5)
[2016-07-08 16:52] LABS: ALANINE AMINOTRANSFERASE 35 U/L (21-72); ALBUMIN 4.6 g/dL (3.5-5.0); ALKALINE PHOSPHATASE 52 U/L (38-126); ANION GAP 12 (5-19); ASPARTATE AMINO TRANSFERASE 36 U/L (17-59); BILIRUBIN,TOTAL 0.4 mg/dL (0.2-1.3); BLOOD UREA NITROGEN 8 mg/dL (7-20); CALCIUM 9.9 mg/dL (8.4-10.2); CARBON DIOXIDE 28 mmol/L (22-30); CHLORIDE 98 mmol/L (98-107); CREATINE KINASE 62 U/L (55-170); CREATININE RESULT 0.67 mg/dL (0.52-1.25); GLUCOSE 78 mg/dL (75-110); POTASSIUM 4.7 mmol/L (3.6-5.0); SODIUM 137.6 mmol/L (137-145); TOTAL PROTEIN 7.4 g/dL (6.3-8.2)
--- NOTE | 2016-07-08 16:55 | ER Document Report ---
ED Cardiac - General Mode of Arrival: Ambulatory Information source: Patient TRAVEL OUTSIDE OF THE [place] IN LAST 30 DAYS: No - HPI Patient complains to provider of: Chest pain Associated symptoms: Other - See above <ALOK COX - Last Filed: 07/08/16 17:07> <VALENTE WILLARD - Last Filed: 07/08/16 17:30> - General Chief Complaint: Chest Pain Stated Complaint: CHEST PRESSURE Notes: Patient is a 61 year old male, with a past medical history including CVA, HIV, and cor pulmonale, who presents to the emergency department complaining of chest pain onset yesterday. Patient reports the pain feels more like a pressure , like "Mammjohnathan Hurd is sitting on my chest". Patient reports the pressure is constant but waxes and wanes. Patient cannot remember having any pain similar to this in the past. Patient denies having cardiac catheterization in the past. 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 (ALOK COX) - Related Data Allergies/Adverse Reactions: cephalexin [Cephalexin] Allergy (Unknown, Verified 07/08/16 15:58) fexofenadine HCl [From Lizzie] Allergy (Unknown, Verified 07/08/16 15:58) ketoconazole [From Nizoral] Allergy (Unknown, Verified 07/08/16 15:58) nevirapine [From Viramune] Allergy (Unknown, Verified 07/08/16 15:58) niacin [Niacin] Allergy (Unknown, Verified 07/08/16 15:58) stavudine [From Zerit] Allergy (Unknown, Verified 07/08/16 15:58) aztreonam Allergy (Verified 07/08/16 15:58) VIDEZ Allergy (Unknown, Uncoded 07/08/16 15:58) Past Medical History - General Information source: Patient - Social History Smoking Status: Unknown if Ever Smoked Family History: Reviewed & Not Pertinent - Past Medical History Cardiac Medical History: Reports: Hx Hypertension - Pulmonary, Hx 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, Other - Hx Cor Pulmonale Pulmonary Medical History: Reports: Hx Pneumonia Neurological Medical History: Reports: Hx Cerebrovascular Accident - 2 STROKES IN [birth year], Other - Hx TIA 06/22/16 Infectious Medical History: Reports: Hx HIV Past Surgical History: Reports: Hx Abdominal Surgery - spleenectomy, Hx Oral Surgery, Hx Rectal Surgery - hemorrhoids, anal fistula, Hx Tonsillectomy, Hx Urinary Tract Surgery - turp - Immunizations Hx Diphtheria, Pertussis, Tetanus Vaccination: Yes <ALOK COX - Last Filed: 07/08/16 17:07> Review of Systems - Review of Systems Constitutional: No symptoms reported EENT: No symptoms reported Cardiovascular: See HPI, Chest pain Respiratory: No symptoms reported Gastrointestinal: No symptoms reported Genitourinary: No symptoms reported Male Genitourinary: No symptoms reported Musculoskeletal: No symptoms reported Skin: No symptoms reported Hematologic/Lymphatic: No symptoms reported Neurological/Psychological: No symptoms reported -: Yes All other systems reviewed and negative <ALOK COX - Last Filed: 07/08/16 17:07> Physical Exam - Vital signs Interpretation: Normal - General General appearance: Appears well, Alert - HEENT Head: Normocephalic, Atraumatic Neck: No: Carotid bruit - Respiratory Respiratory status: No respiratory distress Chest status: Nontender Breath sounds: Normal Chest palpation: Normal - Cardiovascular Rhythm: Regular Heart sounds: S1 appreciated - loud, heard in neck, S2 appreciated - loud, heard in neck Murmur: No - Back Back: Normal, Nontender - Extremities General upper extremity: Normal inspection, Normal ROM, Normal strength General lower extremity: Normal inspection, Normal ROM, Normal strength, Normal weight bearing - Neurological Neuro grossly intact: Yes Cognition: Normal Orientation: AAOx4 Cy Coma Scale Eye Opening: Spontaneous Cy Coma Scale Verbal: Oriented [place] Coma Scale Motor: Obeys Commands [place] Coma Scale Total: 15 Speech: Normal Motor strength normal: LUE, RUE, LLE, RLE - Psychological Associated symptoms: Normal affect, Normal mood - Skin Skin Temperature: Warm Skin Moisture: Dry Skin Color: Normal <ALOK COX - Last Filed: 07/08/16 17:07> Course - Laboratory Result Diagrams: 07/08/16 16:15 07/08/16 16:15 <ALOK COX - Last Filed: 07/08/16 17:07> - Laboratory Result Diagrams: 07/08/16 16:15 07/08/16 16:15 - Diagnostic Test Radiology reviewed: Image reviewed, Reports reviewed - Chest x-ray does not show any acute process. The pulmonary artery is enlarged, this chronic finding and he has known pulmonary hypertension - EKG Interpretation by Mo EKG shows normal: Sinus rhythm, [place], Intervals, QRS Complexes. abnormal: ST-T Waves - Diffuse abnormal T abnormalities, unchanged from 06/22/2016 Rate: Normal - 77 Rhythm: NSR <VALENTE WILLARD - Last Filed: 07/08/16 17:30> - Re-evaluation Re-evalutation: 07/08/16 17:27 The patient has had constant chest pain since yesterday. He describes it as a heavy pressure like someone sitting on his chest. He does have known pulmonary hypertension, HIV, prior CVAs. EKG today is unchanged from one done here approximately 3 weeks ago. His troponins are undetectable despite nearly constant pain since yesterday. On exam he does not appear to be in any distress at all. (VALENTE WILLARD) - Vital Signs Vital signs: Temp Pulse Resp BP Pulse Ox 97.5 F 82 18 142/92 H 95 07/08/16 15:55 07/08/16 15:55 07/08/16 16:41 07/08/16 16:41 07/08/16 16:41 Discharge <ALOK COX - Last Filed: 07/08/16 17:07> <VALENTE WILLARD - Last Filed: 07/08/16 17:30> - Discharge Clinical Impression: Chest pain Qualifiers: Chest pain type: unspecified Qualified Code(s): R07.9 - Chest pain, unspecified Condition: Stable Disposition: HOME, SELF-CARE Additional Instructions: Chest Pain of Unclear Cause: The exact cause of your chest pain isn't clear. Fortunately, there is no evidence of a dangerous medical condition. Further testing may be required to find the source of the pain. Most often, we find that this pain is coming from the chest wall -- the muscles or rib joints in the chest. But chest pain can come from the lung and lung lining, the esophagus, the heart valves or heart lining, and even the stomach or gallbladder. Rest. Eat lightly until the pain is gone. We may prescribe medicine for pain and inflammation. You should call the physician immediately if the pain radiates to the shoulder, jaw or arms; if you start to run a fever or develop a cough; or if you develop shortness of breath, or other new or alarming symptoms. //////////////////////////////////////////////////////////////////////////////// //////////////////////////////////////////////////////////////////////////////// ////////////// Your cardiac enzymes are undetectable today. Your EKG is unchanged from one done on 06/22/2016. Your chest x-ray is unchanged, and this shows the known pulmonary hypertensive changes. There is no clear explanation for your chest pain today, however it does not appear to be due to a cardiac problem. You should rest today. Follow-up with your primary care provider tomorrow for further evaluation of your chest discomfort. RETURN TO THE EMERGENCY ROOM IF ANY NEW OR WORSENING SYMPTOMS. Referrals: WILMAR BURDEN MD [Primary Care Provider] - Follow up tomorrow Scribe Attestation: 07/08/16 17:30 I personally performed the services described in the documentation, reviewed and edited the documentation which was dictated to the scribe in my presence, and it accurately records my words and actions. (VALENTE WILLARD)
[2016-07-08 17:04] LABS: CREATINE KINASE MB 1.61 ng/mL (<4.55)
[2016-07-08 17:05] LABS: TROPONIN I < 0.012 ng/mL
[2016-07-08 17:35] VITALS: BP 126/86
--- NOTE | 2016-07-09 21:34 | EKG REPORT ---
SEVERITY:- ABNORMAL ECG - SINUS RHYTHM ABNORMAL T, CONSIDER ISCHEMIA, DIFFUSE LEADS : Confirmed by: Rebecca Enciso 09-Jul-2016 21:33:50
== END 2016-07-08 17:35 | disposition home or self-care (01) ==
LOC: ER 15:35
DX: R07.89 Other chest pain (principal); I27.81 Cor pulmonale (chronic); I27.2 Other secondary pulmonary hypertension; Z86.73 Personal history of transient ischemic attack (TIA), and cerebral infarction without residual deficits; Z21 Asymptomatic human immunodeficiency virus [HIV] infection status; Z86.79 Personal history of other diseases of the circulatory system; Z88.1 Allergy status to other antibiotic agents; Z88.8 Allergy status to other drugs, medicaments and biological substances; Z88.3 Allergy status to other anti-infective agents; Z87.01 Personal history of pneumonia (recurrent); Z90.81 Acquired absence of spleen
CPT/HCPCS: 93005; 99284; 36415; 82553; 82550; 85025; 80053; 84484; 71020; 93010; A9270

== ENCOUNTER → 2018-07-18 | Outpatient (CLI) | payer MEDICARE, BC ==
--- NOTE | 2018-07-18 09:42 | RADIOLOGY REPORT (SQ) ---
EXAM DESCRIPTION: CHEST 2 VIEWS COMPLETED DATE/TIME: 07/18/2018 9:37 am REASON FOR STUDY: PULMONARY HTN,SOB COMPARISON: 07/08/2016 EXAM PARAMETERS: NUMBER OF VIEWS: two views TECHNIQUE: Digital Frontal and Lateral radiographic views of the chest acquired. RADIATION DOSE: NA LIMITATIONS: none FINDINGS: LUNGS AND PLEURA: No opacities, masses or pneumothorax. No pleural effusion. MEDIASTINUM AND HILAR STRUCTURES: There is bilateral higher fullness consistent with a prominent pulm onary arteries. HEART AND VASCULAR STRUCTURES: Stable in appearance. No failure. BONES: No acute findings. HARDWARE: None in the chest. OTHER: No other significant finding. IMPRESSION: Enlarged pulmonary arteries consistent with pulmonary hypertension. No consolidation or effusions. TECHNICAL DOCUMENTATION: JOB ID: [id number] [employer]- All Rights Reserved Reading location - IP/workstation name: [email or web address]
--- NOTE | 2018-07-18 10:33 | RADIOLOGY REPORT (SQ) ---
EXAM DESCRIPTION: NM LUNG VENT/PERF SCAN COMPLETED DATE/TIME: 07/18/2018 10:26 am REASON FOR STUDY: PULMONARY HTN,SOB I27.0 PRIMARY PULMONARY HYPERTENSION COMPARISON: Chest x-ray done earlier the same day. RADIONUCLIDE AND DOSE: 4.68 millicuries TC-99m MAA Intravenous 31.3 millicuries TC-99m DTPA Inhaled aerosol TECHNIQUE: Eight views of the lungs acquired post ventilation of DTPA aerosol. Eight matching views of the lungs acquired following injection of MAA. LIMITATIONS: None. FINDINGS: VENTILATION: Symmetric and mildly heterogeneous uptake on ventilation images. PERFUSION: Perfusion images with normal homogenous activity and no wedge-shaped or segmental defects. No ventilation-perfusion mismatches. OTHER: No other significant finding. IMPRESSION: NORMAL VENTILATION-PERFUSION LUNG SCAN. NEGATIVE FOR PULMONARY EMBOLI. TECHNICAL DOCUMENTATION: JOB ID: [id number] [employer]- All Rights Reserved Reading location - IP/workstation name: [email or web address]
== END ==
LOC: RAD 09:15
PROVIDERS: ATTEND Physician Assistant Medical
DX: I27.0 Primary pulmonary hypertension (principal); R06.02 Shortness of breath
CPT/HCPCS: 71046; 78582; A9540; A9567; Q9969

== ENCOUNTER 2018-12-07 07:39 | Emergency (ER) | payer MEDICARE, BC ==
[2018-12-07] MEDS ORDERED: DIPHENHYDRAMINE HCL 50 MG/ML VIAL IV ONE (08:32)
[2018-12-07] MEDS ORDERED: KETOROLAC TROMETHAMINE INJ/PF 30 MG/1 ML SDV IV ONE (08:32)
[2018-12-07] MEDS ORDERED: PROCHLORPERAZINE EDISYLATE INJ 10 MG/2 ML VIAL IV ONE (08:32)
--- NOTE | 2018-12-07 08:59 | RADIOLOGY REPORT (SQ) ---
EXAM DESCRIPTION: CT HEAD WITHOUT COMPLETED DATE/TIME: 12/07/2018 8:51 am REASON FOR STUDY: headache x3 weeks COMPARISON: 06/22/2016 TECHNIQUE: Axial images acquired through the brain without intravenous contrast. Images reviewed wi th bone, brain and subdural windows. Additional sagittal and coronal reconstructions were generated. Images stored on PACS. All CT scanners at this facility use dose modulation, iterative reconstruction, and/or weight based d osing when appropriate to reduce radiation dose to as low as reasonably achievable (ALARA). [facility]: Dose Right [facility]: CareDose [facility]: Dose Right [facility]: Teradose 4D [facility]: Smart CirroSecure RADIATION DOSE: CT Rad equipment meets quality standard of care and radiation dose reduction techniq ues were employed. CTDIvol: 53.2 mGy. DLP: 1017 mGy-cm. mGy. LIMITATIONS: None. FINDINGS: VENTRICLES: Prominent. CEREBRUM: No masses. No hemorrhage. No midline shift. Areas of low density in the white matter mos t likely due to chronic micro-vascular ischemic change. No evidence for acute infarction. Multiple small lacunar infarcts. CEREBELLUM: No masses. Old left cerebellar hemispheric infarct. No hemorrhage. No alteration of de nsity. No evidence for acute infarction. EXTRAAXIAL SPACES: Mild age-related involutional change. No fluid collections. No masses. ORBITS AND GLOBE: No intra- or extraconal masses. Normal contour of globe without masses. CALVARIUM: No fracture. PARANASAL SINUSES: No fluid or mucosal thickening. SOFT TISSUES: No mass or hematoma. OTHER: No other significant finding. IMPRESSION: MILD CHRONIC CHANGES OF ATROPHY AND MICROVASCULAR ISCHEMIA. Chronic infarcts. NO ACUTE PROCESS. EVIDENCE OF ACUTE STROKE: NO. TECHNICAL DOCUMENTATION: JOB ID: [id number] Quality ID # [id number]: Final reports with documentation of one or more dose reduction techniques (e.g., Au tomated exposure control, adjustment of the mA and/or kV according to patient size, use of iterative reconstruction technique) 2010 [employer]- All Rights Reserved Reading location - IP/workstation name: [email or web address]
--- NOTE | 2018-12-07 09:06 | ER Document Report ---
ED Headache - General Chief Complaint: Headache Stated Complaint: HEADACHE/HEAD PAIN Time Seen by Provider: 12/07/18 08:06 Primary Care Provider: WILMAR BURDEN MD [COMMUNITY BASED STAFF] - Follow up as needed Mode of Arrival: Ambulatory Information source: Patient Notes: Patient is a 63-year-old male presenting to the emergency department chief complaint of headache. Patient reports headache is located on the right side of his head. He reports the pain first started 2 weeks ago and had a gradual onset. He reports it has been intermittent. He reports intermittent light sensitivity and noise sensitivity with the headache. He reports the panic feels like a sharp stabbing pain on the right side of his head. He denies any fever, neck pain, nausea or vomiting. He reports he has tried taking Tylenol, Aleve and Benadryl without resolve. He denies any history of migraines. 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 Dr. Dyer is his primary care provider. TRAVEL OUTSIDE OF THE [place] IN LAST 30 DAYS: No - Related Data Allergies/Adverse Reactions: cephalexin [Cephalexin] Allergy (Unknown, Verified 07/08/16 15:58) fexofenadine HCl [From Lizzie] Allergy (Unknown, Verified 07/08/16 15:58) ketoconazole [From Nizoral] Allergy (Unknown, Verified 07/08/16 15:58) nevirapine [From Viramune] Allergy (Unknown, Verified 07/08/16 15:58) niacin [Niacin] Allergy (Unknown, Verified 07/08/16 15:58) stavudine [From Zerit] Allergy (Unknown, Verified 07/08/16 15:58) aztreonam Allergy (Verified 07/08/16 15:58) VIDEZ Allergy (Unknown, Uncoded 07/08/16 15:58) Past Medical History - General Information source: Patient - Social History Smoking Status: Never Smoker Frequency of alcohol use: None Drug Abuse: None Family History: Reviewed & Not Pertinent - Past Medical History Cardiac Medical History: Reports: Hx Hypertension - Pulmonary, 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 Denies: Hx Migraine, Hx Seizures Endocrine Medical History: Denies: Hx Diabetes Mellitus Type 1, Hx Diabetes Mellitus Type 2 Renal/ Medical History: Denies: Hx Peritoneal Dialysis GI Medical History: Denies: Hx Hepatitis, Hx Hiatal Hernia, Hx Ulcer Infectious Medical History: Reports: Hx HIV. Denies: Hx Hepatitis Past Surgical History: Reports: Hx Abdominal Surgery - spleenectomy, Hx Oral Surgery, Hx Rectal Surgery - hemorrhoids, anal fistula, Hx Tonsillectomy, Hx Urinary Tract Surgery - turp. Denies: Hx Open Heart Surgery, Hx Pacemaker - Immunizations Hx Diphtheria, Pertussis, Tetanus Vaccination: Yes Review of Systems - Review of Systems Constitutional: No symptoms reported EENT: No symptoms reported Cardiovascular: No symptoms reported Respiratory: No symptoms reported Gastrointestinal: No symptoms reported Genitourinary: No symptoms reported Male Genitourinary: No symptoms reported Musculoskeletal: No symptoms reported Skin: No symptoms reported Hematologic/Lymphatic: No symptoms reported Neurological/Psychological: Headaches Physical Exam - Vital signs Vitals: Temp Pulse Resp BP Pulse Ox 98.0 F 87 20 130/83 H 92 12/07/18 07:43 12/07/18 07:43 12/07/18 07:43 12/07/18 07:43 12/07/18 07:43 - Notes Notes: PHYSICAL EXAMINATION: GENERAL: Well-appearing, well-nourished and in no acute distress. HEAD: Atraumatic, normocephalic. EYES: Pupils equal round and reactive to light, extraocular movements intact, sclera anicteric, conjunctiva are normal. ENT: Nares patent, oropharynx clear without exudates. Moist mucous membranes. NECK: Normal range of motion, supple without lymphadenopathy LUNGS: Breath sounds clear to auscultation bilaterally and equal. No wheezes rales or rhonchi. HEART: Regular rate and rhythm without murmurs ABDOMEN: Soft, nontender, nondistended abdomen. No guarding, no rebound. No masses appreciated. Musculoskeletal: Normal range of motion, no pitting or edema. No cyanosis. NEUROLOGICAL: Cranial nerves grossly intact. Normal speech, normal gait. Normal sensory, motor exams. No focal neurological deficits. PSYCH: Normal mood, normal affect. SKIN: Warm, Dry, normal turgor, no rashes or lesions noted. Course - Re-evaluation Re-evalutation: Patient is alert, oriented, nontoxic in appearance, answering all questions appropriately. His physical examination is unremarkable. Patient was sent for CT of his head as he does not have a history of headaches and has had persistent headache for the last [address] was negative for any acute findings. He was also given a migraine cocktail, we will see if this helps resolve his symptoms. Patient reports complete resolution of his headache after administration of medications here in the emergency department. Patient will be discharged home in stable condition, encourage patient to follow-up with his primary care provider, patient verbalizes understanding and agreement with this plan. The patient's emergency department workup and current diagnosis were explained to the patient and or family. Follow-up instructions were provided. Medications if prescribed were discussed. Instructions for when to return to the emergency department including specific worrisome symptoms were discussed with the patient and/or family. - Vital Signs Vital signs: Temp Pulse Resp BP Pulse Ox 98.2 F 86 18 122/78 95 12/07/18 11:49 12/07/18 11:49 12/07/18 11:49 12/07/18 11:49 12/07/18 11:49 Discharge - Discharge Clinical Impression: Headache Qualifiers: Headache type: unspecified Headache chronicity pattern: unspecified pattern Intractability: not intractable Qualified Code(s): R51 - Headache Condition: Stable Disposition: HOME, SELF-CARE Additional Instructions: You have been seen in the Emergency Department (ED) for a headache. Please take medication as prescribed. As we have discussed, please follow up with your primary care doctor as soon as possible regarding today's ED visit and your headache symptoms. A copy of your head CT was provided to you for review by your primary care provider. Call your doctor or return to the ED if you have a worsening headache, sudden and severe headache, confusion, slurred speech, facial droop, weakness or numbness in any arm or leg, extreme fatigue, or other symptoms that concern you. Prescriptions: Butalb/Acetaminophen/Caffeine [Fioricet (50-325-40 mg) Tablet] 1 tab PO Q4HP PRN #20 tab PRN Reason: Referrals: WILMAR BURDEN MD [COMMUNITY BASED STAFF] - Follow up as needed
[2018-12-07] MEDS ORDERED: MORPHINE SULFATE 10 MG/ML INJ IV ONE (10:22)
[2018-12-07] MEDS ORDERED: BUTALB/ACETAMINOPHEN/CAFFEINE 1 TAB EACH PO ONE (11:16)
[2018-12-07 11:52] VITALS: BP 122/78
== END 2018-12-07 11:48 | disposition home or self-care (01) ==
LOC: ER 07:39
DX: R51 Headache (principal); H53.149 Visual discomfort, unspecified; I27.20 Pulmonary hypertension, unspecified; B20 Human immunodeficiency virus [HIV] disease; Z88.1 Allergy status to other antibiotic agents; Z88.3 Allergy status to other anti-infective agents; Z88.8 Allergy status to other drugs, medicaments and biological substances
CPT/HCPCS: 99284; 96374; 96375; 70450; A9270; J1200; J1885; J2270; J0780; J3490